=== PATIENT | female | born 1940 | race Caucasian/White ===

== ENCOUNTER 2016-11-12 10:44 | Outpatient (CLI) | payer MEDICARE | END 2016-11-12 10:45 | disposition home or self-care (01) | LOC: HPCALD 10:44 | PROVIDERS: ATTEND Family Medicine | DX: E03.9 Hypothyroidism, unspecified (principal) | CPT/HCPCS: 36415; 84443 ==

== ENCOUNTER 2017-05-21 12:08 | Outpatient (CLI) | payer MEDICARE | END 2017-05-21 12:09 | disposition home or self-care (01) | LOC: HPCALD 12:08 | PROVIDERS: ATTEND Family Medicine | DX: L81.9 Disorder of pigmentation, unspecified (principal) ==

== ENCOUNTER 2017-06-14 14:29 | Emergency (ER) | payer MEDICARE ==
[2017-06-14] MEDS ORDERED: Ondansetron HCl/PF 4 MG/2 ML Vial ONE (15:05)
[2017-06-14 15:09] LABS: #Basophils 0.1 thou/uL (0.0-0.2); #Eosinphils 0.1 thou/uL (0.0-0.7); #Monocytes 0.6 thou/uL (0.11-0.59); #Neutrophils 8.9 thou/uL (1.40-6.50); %Basophils 0.5 % (0.0-1.0); %Eosinophils 1.4 % (0.0-10.0); %Lymphocytes 9.3 % (21.0-51.0); %Monocytes 5.7 % (0.0-10.0); %Neutrophils 83.2 % (42.0-75.0); Hemoglobin 14.2 g/dL (12.0-16.0); Mean Corpuscular HGB CONC 33.7 g/dL (32.0-36.0); Mean Corpuscular Hemoglobin 31.3 pg (27.0-31.0); Mean Corpuscular Volume 92.8 fl (81.0-99.0); Mean Platelet Volume 7.4 fL (7.4-10.4); Platelet Count 207 thou/uL (130-400); RBC Distribution Width 12.2 % (11.5-14.5); Red Blood Cell (RBC) Count 4.54 mill/uL (4.20-5.40); White Blood Cell (WBC) Count 10.7 thou/uL (4.8-10.8)
[2017-06-14 15:24] LABS: ALT (SGPT) 15 U/L (8-55); AST (SGOT) 17 U/L (5-34); Albumin 4.6 g/dL (3.4-4.8); Alkaline Phosphatase 68 U/L (40-150); Anion Gap 14 mmol/L (10-20); BUN (Urea Nitrogen) 12 mg/dL (9.8-20.1); Bilirubin, Total 0.8 mg/dL (0.2-1.2); Calc. Creatinine Clearance 0 mL/min (70-130); Calcium 9.7 mg/dL (7.8-10.44); Carbon Dioxide 25 mmol/L (23-31); Chloride 104 mmol/L (98-107); Estimated GFR-MDRD 55; Globulin 2.8 g/dL (2.4-3.5); Glucose 136 mg/dL (83-110); Potassium 3.9 mmol/L (3.5-5.1); Protein, Total 7.4 g/dL (6.0-8.3); Sodium 139 mmol/L (136-145)
[2017-06-14 15:53] LABS: Lipase Greater than 1000 U/L (8-78)
--- NOTE | 2017-06-14 16:22 | CT ---
CT OF THE ABDOMEN AND PELVIS WITHOUT CONTRAST: Date: 06/14/[address] of the abdomen and pelvis was done for evaluation of epigastric and right upper quadrant p ain, along with nausea and vomiting. Axial slices were acquired without oral or IV contrast as reque sted. Coronal and sagittal reconstructions were then done. FINDINGS: The major finding on this study is a very large gallbladder measuring 10.0 cm in length. No gross ca lcifications were seen within it, though tiny stones might only be seen by ultrasound. There is no p rominent dilation of intrahepatic ducts. The common bile duct appears close to normal in size as it enters the head of the pancreas. There is a small amount of stranding in the fat of the right flank and the right lower quadrant, but it is not directly around bowel and its current significance is in determinate. There is diverticulosis involving the sigmoid colon. I do not see stranding around loop s of bowel where diverticula are prominent, thus no finding of diverticulitis can confidently be yissel gnosed. No free air or free fluid seen in the abdomen or pelvis. The lung bases are clear. The liver, spleen, pancreas, adrenal glands, kidneys, and abdominal aorta showed no acute findings within the limitations of a noncontrast study. No renal or ureteral calculi seen. A small calcification in the pelvis on the right appears to be vascular. CT of the pelvis showed no pelvic masses, fluid collections, or other obvious acute changes. IMPRESSION: 1. Very large gallbladder (10 cm long). 2. Diverticulosis. 3. Some minimal stranding in the fat of the right lower quadrant of indeterminate significance, but not clearly connected with bowel to suggest a definite current inflammatory change. POS: HOME
== END 2017-06-14 17:28 | disposition short-term general hospital (02) ==
LOC: BURERS 14:29
DX: K85.90 Acute pancreatitis without necrosis or infection, unspecified (principal); K82.8 Other specified diseases of gallbladder; G62.9 Polyneuropathy, unspecified; I10 Essential (primary) hypertension; F41.9 Anxiety disorder, unspecified; Z79.891 Long term (current) use of opiate analgesic; Z79.2 Long term (current) use of antibiotics; Z79.899 Other long term (current) drug therapy
CPT/HCPCS: 74176; 80053; 83690; 85025; 96361; 96365; 96375; J2270; J2405; J3490

== ENCOUNTER 2019-08-28 10:55 | Outpatient (CLI) | payer MEDICARE ==
--- NOTE | 2019-08-28 20:01 | RAD ---
LEFT HIP TWO VIEWS; 08/28/2019 COMPARISON: Prior study of 03/31/2016 from [facility]. FINDINGS: The left hip arthroplasty continues to have a normal postoperative appearance. There is no sign of lo osening or infection of the hardware. No fracture or other bony change of concern is seen. IMPRESSION: No acute findings. POS: HOME
--- NOTE | 2019-08-28 20:03 | RAD ---
LUMBAR SPINE THREE VIEWS: 08/28/2019 COMPARISON: MRI lumbar spine from 07/31/2015. FINDINGS: There is the beginnings of some compression of the superior endplate of L5. This was not present in 2 015. Additionally, facet arthritis seems moderately prominent at L4-L5 and L5-S1. The other lumbar le vels appear intact. There has been a prior vertebroplasty of T11. IMPRESSION: 1. Mild compression of the superior endplate of L5, age indeterminate, not present in 2014. 2. 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 3. Compression of T11 with vertebroplasty seems stable. POS: HOME
== END 2019-08-28 10:56 | disposition home or self-care (01) ==
LOC: BURRAD 10:55
PROVIDERS: ATTEND Family Medicine
DX: M54.5 Low back pain (principal); M25.552 Pain in left hip; M46.96 Unspecified inflammatory spondylopathy, lumbar region; G95.20 Unspecified cord compression
CPT/HCPCS: 72100

== ENCOUNTER 2020-11-29 13:20 | Outpatient (CLI) | payer MEDICARE | END 2020-11-29 13:21 | disposition home or self-care (01) | LOC: BURRAD 13:20 | PROVIDERS: ATTEND Family Medicine | DX: M25.552 Pain in left hip (principal); M54.6 Pain in thoracic spine | CPT/HCPCS: 72070 ==

== ENCOUNTER 2021-10-24 13:32 | Emergency (ER) | payer MEDICARE ==
[2021-10-24 15:02] LABS: #Lymphocytes 0.8 thou/uL (1.20-3.40); #Monocytes 0.4 thou/uL (0.11-0.59); #Neutrophils 3.5 thou/uL (1.40-6.50); %Basophils 0.3 % (0.0-1.0); %Eosinophils 0.2 % (0.0-10.0); %Lymphocytes 16.2 % (21.0-51.0); %Monocytes 8.4 % (0.0-10.0); %Neutrophils 74.9 % (42.0-75.0); Hemoglobin 12.9 g/dL (12.0-16.0); Mean Corpuscular HGB CONC 34.6 g/dL (32.0-36.0); Mean Corpuscular Hemoglobin 31.8 pg (27.0-31.0); Mean Corpuscular Volume 92.1 fL (78.0-98.0); Mean Platelet Volume 7.8 fL (7.4-10.4); Platelet Count 220 thou/uL (130-400); RBC Distribution Width 12.2 % (11.5-14.5); Red Blood Cell (RBC) Count 4.05 mill/uL (4.20-5.40); White Blood Cell (WBC) Count 4.7 thou/uL (4.8-10.8)
[2021-10-24 15:11] LABS: ALT (SGPT) 25 U/L (8-55); AST (SGOT) 26 U/L (5-34); Albumin 4.6 g/dL (3.4-4.8); Alkaline Phosphatase 58 U/L (40-110); Anion Gap 19 mmol/L (10-20); BUN (Urea Nitrogen) 8 mg/dL (9.8-20.1); Bilirubin, Total 0.5 mg/dL (0.2-1.2); Calc. Creatinine Clearance 0 mL/min (70-130); Calcium 9.5 mg/dL (7.8-10.44); Carbon Dioxide 22 mmol/L (23-31); Chloride 103 mmol/L (98-107); Globulin 2.6 g/dL (2.4-3.5); Glucose 122 mg/dL (83-110); Potassium 3.6 mmol/L (3.5-5.1); Protein, Total 7.2 g/dL (5.8-8.1); Sodium 140 mmol/L (136-145)
[2021-10-24 16:25] LABS: Bilirubin Negative (Negative); Blood, Urine Negative (Negative); Clarity Clear (Clear); Glucose, Urine (Dipstick) Negative (Negative); Ketone, Urine 15 mg/dL (Negative); Leukocyte Moderate (Negative); Nitrite Negative (Negative); Protein, Urine (Dipstick) Negative (Neg-Trace); Urobilinogen 0.2 mg/dL (Less than 2)
[2021-10-24 16:38] LABS: RBC/HPF 0-3 HPF (0-3)
[2021-10-24 16:39] LABS: Bacteria/HPF Rare-Few HPF (None Seen); Mucous/LPF 1+ LPF (<2+); Renal Epithelial 0-3 HPF (None Seen); Squamous Epithelial 0-3 HPF (0-3); WBC/HPF 21-50 HPF (0-3)
[2021-10-24] MEDS ORDERED: traMADol HCl 50 MG TAB ONE (17:25)
[2021-10-24] MEDS ORDERED: cefTRIAXone\\ROCEPHIN 1 GM VIAL ONE (17:25)
[2021-10-24 17:47] LABS: Lactic Acid 1.4 mmol/L (0.5-2.2)
[2021-10-25 00:20] LABS: SARS-CoV-2 PCR by NAA DETECTED (NotDetected)
== END 2021-10-24 20:25 | disposition home or self-care (01) ==
LOC: BURERS 13:32
DX: U07.1 COVID-19 (principal); N39.0 Urinary tract infection, site not specified; E86.0 Dehydration; I10 Essential (primary) hypertension; G62.9 Polyneuropathy, unspecified; Z85.3 Personal history of malignant neoplasm of breast; Z79.899 Other long term (current) drug therapy
CPT/HCPCS: 36415; 71045; 80053; 81003; 81015; 83605; 83880; 84484; 85025; 87804; 93005; 96374; J0696; U0003; U0005